=== PATIENT | male | born 2000 | race Two or more races ===

== ENCOUNTER 2024-12-24 15:27 | Emergency (ER) | payer MEDICAID ==
[~2024-12-24] VITALS: Ht 182.9 cm; Wt 92.5 kg
[2024-12-24 15:32] VITALS: BP 148/95; TEMP 98.1
[2024-12-24] MEDS ORDERED: DIPH25CA83 PO (16:09)
[2024-12-24] MEDS ORDERED: CLIN300C12 PO (16:09)
[2024-12-24] MEDS ORDERED: FAMO-131 PO (16:09)
[2024-12-24] MEDS ORDERED: MUPI1OIN5 TP (16:09)
[2024-12-24] MEDS: FAMOTIDINE (20 MG) 20 MG TABLET PO ONE (16:14)
[2024-12-24] MEDS ORDERED: FAMOTIDINE (20 MG) 20 MG TABLET ONE (16:14)
[2024-12-24 16:17] VITALS: O2SAT 98
== END 2024-12-24 16:18 | disposition home or self-care (01) ==
LOC: ER 15:36
DX: L73.9 Follicular disorder, unspecified (principal)